=== PATIENT | female | born 1935 | race African-American/Black ===

== ENCOUNTER 2017-11-19 11:42 | Emergency (ER) | payer OTHER ==
[~2017-11-19] VITALS: Ht 162.6 cm; Wt 72.6 kg
[2017-11-19 11:56] VITALS: BP 124/51
== END 2017-11-19 13:03 | disposition home or self-care (01) ==
LOC: ER 11:42
DX: S63.502A Unspecified sprain of left wrist, initial encounter (principal); I10 Essential (primary) hypertension; E11.9 Type 2 diabetes mellitus without complications; W19.XXXA Unspecified fall, initial encounter; Y93.01 Activity, walking, marching and hiking; Y92.89 Other specified places as the place of occurrence of the external cause; Y99.8 Other external cause status